=== PATIENT | female | born 1960 | race African-American/Black ===

== ENCOUNTER 2017-11-23 14:45 | Emergency (ER) | payer MEDICAID ==
[~2017-11-23] VITALS: Ht 170.2 cm; Wt 53.5 kg
[~2017-11-23 14:45] MED LIST: CARB400T; TOLT1TAB4
[2017-11-23 14:58] VITALS: BP 124/78
[2017-11-23 17:11] LABS: Urine Bacteria NONE SEEN /hpf (None Seen); Urine Blood Negative /uL (Negative); Urine Mucus FEW (None Seen); Urine Specific Gravity 1.013 (1.001-1.035); Urine WBC <1 /hpf (0 - 5)
== END 2017-11-23 16:14 | disposition left against medical advice (07) ==
LOC: ER 14:45
DX: F20.9 Schizophrenia, unspecified (principal); F17.210 Nicotine dependence, cigarettes, uncomplicated; Z76.0 Encounter for issue of repeat prescription; Z88.6 Allergy status to analgesic agent
CPT/HCPCS: 81001